=== PATIENT | male | born 1980 | race Caucasian/White ===

== ENCOUNTER 2021-10-07 08:19 | Emergency (ER) | payer OTHER ==
[2021-10-07 10:12] LABS: HEMOGLOBIN 14.2 gm/dl (14.0-17.5); RED BLOOD COUNT 4.74 M/UL (4.20-5.50); WHITE BLOOD COUNT 8.8 K/UL (4.5-11.0)
[2021-10-07 10:50] LABS: BUN/CREATININE RATIO 12 (0-10)
[2021-10-07] MEDS ORDERED: ZOFRAN 4 MG TAB4 MG PO (11:32)
== END 2021-10-07 11:56 | disposition home or self-care (01) ==
LOC: ER1 08:19
PROVIDERS: Emergency Medicine
DX: R31.9 Hematuria, unspecified (principal); R11.0 Nausea; R51.9 Headache, unspecified
CPT/HCPCS: 71045; 80053; 81001; 83690; 84439; 84443; 84484; 85025; 86140; 93005; 99284